=== PATIENT | male | born 1945 | race Caucasian/White ===

== ENCOUNTER 2017-03-10 15:58 | Emergency (ER) | payer OTHER ==
[~2017-03-10] VITALS: Ht 172.7 cm; Wt 74.8 kg
[~2017-03-10 15:58] MED LIST: AMOX TR-K CLV1 EAC4 PO; CRESTOR5 MG PO; DILAUDID2 MG PO; DURAGESIC25 MCG TD; FLOMAX0.4 MG PO; INDOCIN25 MG PO; KEFLEX500 MG PO; LOPRESSOR50 MG PO; PERCOCET 5/31 TABLET PO; ULTRAM50 MG PO; VALIUM2 MG PO; VASOTEC20 MG PO
[2017-03-10 16:27] LABS: HEMATOCRIT 36.8 % (38.0-50.0); MCH 31.5 PG (29.0-34.0); MCHC 35.1 G/DL (30.0-36.0); MCV 89.8 FL (86-99); MEAN PLAT.VOLUME 9.8 uM^3 (9.0-12.4); PLATELET COUNT 182 K/uL (156-360); RBC DIS.WIDTH-CV 13.2 % (11.8-14.6); RBC DIS.WIDTH-SD 43.9 % (39-53); WHITE BLOOD COUNT 11.6 K/uL (4.1-10.2)
[2017-03-10 16:40] LABS: CHLORIDE 98 mEq/L (99-109); SODIUM 135 mEq/L (136-147)
[2017-03-10 16:42] LABS: GLUCOSE 110 mg/dL (70-99)
[2017-03-10 16:43] LABS: ANION GAP 10 MEQ/L (2-14)
[2017-03-10 16:46] LABS: GFR ESTIMATE (CALCULATED) > 59 mL/min/
[2017-03-10 16:47] LABS: UREA NITROGEN (BUN) 18 mg/dL (9-23)
[2017-03-10 17:18] LABS: ADD MIUA? NO; BILIRUBIN NEGATIVE; BLOOD NEGATIVE; COLOR YELLOW ((YELLOW)); GLUCOSE (STRIP) NEGATIVE; KETONES NEGATIVE; LEUKOCYTES NEGATIVE; NITRITE NEGATIVE; PROTEIN (STRIP) NEGATIVE; SPECIFIC GRAVITY 1.017 (1.000-1.030); UCUL ADDED? NO; UROBILINOGEN 0.2 MG/DL (0.2-1.0)
[2017-03-10] MEDS ORDERED: FLEXERIL10 MG PO (18:22)
[2017-03-10] MEDS ORDERED: PERCOCET 5/31 TABLET PO (18:22)
[2017-03-10 18:46] VITALS: BP 188/104
== END 2017-03-10 18:46 | disposition home or self-care (01) ==
LOC: EME 15:58 → RME 15:58
DX: S16.1XXA Strain of muscle, fascia and tendon at neck level, initial encounter (principal); I10 Essential (primary) hypertension; N40.0 Benign prostatic hyperplasia without lower urinary tract symptoms
CPT/HCPCS: 80048; 81003; 85027; 99281; 99284; J2270